=== PATIENT | female | born 1985 | race Caucasian/White ===

== ENCOUNTER 2025-07-28 15:23 | Emergency (ER) | payer OTHER, SELFPAY ==
[2025-07-28 15:29] VITALS: BP 130/84
[2025-07-28 16:28] LABS: Hematocrit 46.3 % (37.0-47.0); Hemoglobin 15.7 g/dL (12.0-16.0); Mean Corp Hgb Conc. 33.9 g/dL (33.0-37.0); Mean Corpuscular Volume 87.7 fL (81.0-99.0); Nucleated Red Blood Cells % 0 %; Platelet Count 314 10^3/uL (130-400); Red Cell Dist. Width 12.4 % (11.5-14.5)
[2025-07-28 16:38] LABS: HCG, Serum Qualitative Screen Negative
[2025-07-28 16:40] LABS: ALT (SGPT) 29 U/L (0-35); AST (SGOT) 26 U/L (14-36); Albumin 5.3 g/dl (3.5-5.0); Alkaline Phosphatase 67 U/L (38-126); Blood Urea Nitrogen 13 mg/dl (7-17); Calcium 10.0 mg/dl (8.4-10.2); Carbon Dioxide 22 mmol/L (22-30); Chloride 106 mmol/L (98-107); Glucose 87 mg/dl (70-99); Potassium 4.9 mmol/L (3.5-5.1); Sodium 136 mmol/L (135-145); Total Protein 8.5 g/dl (6.3-8.2); eGFR > 60.00
[2025-07-28 17:36] VITALS: BMI 32.6
--- NOTE | 2025-07-28 17:45 | ED.GENMED ---
History of Present Illness
General
Chief Complaint: Headache
Source: patient
Exam Limitations: none
Time Seen by Provider: 07/28/25 17:24
Nursing documentation reviewed up to this point in time: agreed with
History of Present Illness
History of Present Illness:
Patient to the emergency room with complaint of headache facial pain that radiates down her neck and across to the left side of her chest. Her symptoms started on Friday and continue to worsen. She was seen by her chiropractor today and advised
to come to the emergency department for further testing. She denies dizziness but reports feeling 'off '. She has not taking any Tylenol or Motrin for her discomfort. She has a history of migraine headaches but states this headache is different.
She reports her nausea but no vomiting. She has mild light sensitivity. Brought self to the emergency department for evaluation.
Past History
Past History
ED Past Medical History: Hypothyroidism
ED Past Surgical History: Other (THyroidectomy)
Social History
Tobacco: Former smoker (Patient stopped smoking 3 weeks ago when she became ill)
Alcohol: Occasional
Drug: None
Personal:
Living: with family
Employment: Employed
Family History
Family History: Other (Noncontributory)
Review of Systems
Review of Systems
Allergies reviewed?: Yes
All Other Systems: ROS reviewed and negative except as documented in HPI and ROS
Constitutional: Reports no symptoms
EENT: Reports other (facial pain, mild light sensitivity)
Respiratory: Reports no symptoms
Cardiac: Reports no symptoms
ABD/GI: Reports nausea
: Reports no symptoms
Musculoskeletal: Reports no symptoms
Skin: Reports no symptoms
Neurological: Reports headache
Psychiatric: Reports no symptoms
Phy Exam
General Physical Exam
General Presentation: moderate distress
General age: appears stated age
General Skin: warm and dry
General Habitus: normal
General Mental: alert
ENT Exam
ENT Exam: EOMI, TM's normal, neck supple, normocephalic and swallowing well
Eye Exam
Eye Exam: PERRL, EOMI, conjunctiva normal and globe normal
Cardiovascular Exam
Cardiovascular Exam: regular rate/rhythm
Pulmonary Exam
Pulmonary Exam: lungs clear and no respiratory distress
Neurological Exam
Neurological Exam: alert, oriented x3, CN II-XII intact, no motor deficits, no sensory deficits, speech normal and normal gait
NIH Stroke Score
Level of Consciousness: 0 - Alert
LOC questions: 0-Answers both correctly
LOC Commands: 0-Performs both correctly
Best Gaze: 0-Normal
Visual Hutton: 0=Normal, no visual loss
Facial palsy: 0=Normal, symmetrical
Motor - Right Arm: 0=No drift 10 seconds
Motor - Left Arm: 0=No drift 10 seconds
Motor - Right Le-No drift 5 seconds
Motor - Left Le-No drift 5 seconds
Limb Ataxia: 0-Absent
Sensation: 0-Normal
Best Language: 0-No aphasia
Dysarthria: 0-Normal
Extinction and Inattention: 0-No abnormality
Total Score:: 0
Isabella Coma Scale
Eye Opening: Spontaneous
Verbal Response: Oriented
Motor Response: Obeys Commands
GCS Total Score: 15
Mental
Mental Status: oriented to person, oriented to place, oriented to time and usual mental status
Cranial
Cranial Nerves: normal and no facial asymetry
EOM (CN3/4/6): intact and other (No nystagmus)
Motor
Seizure Activity: none
Gait: normal
Tremors: none
Other Movement Disorders: none
Right upper extremity: 4
Right lower extremity: 4
Left upper extremity: 4
Left lower extremity: 4
Bilateral upper extremities: 4
Bilateral lower extremities: 4
Sensory
Sensory Exam: intact
Cerebellar
Cerebellar Function: normal finger to nose, normal heel to pinon and normal Romberg test
Musculoskeletal Exam
Musculoskeletal Exam: full ROM and neuro vasc intact
Skin Exam
Skin Exam: normal color, warm/dry and no rash
Psychiatric Exam
Psychiatric Exam: normal mood/affect
Course
Orders/Labs/Results
Orders:
Orders
07/28/25 15:35
Test Result ONCE
07/28/25 15:59
CMP [Comprehensive Metabolic Panel] Urgent
Complete Blood Count/With Diff Urgent
HCG, Serum Qualitative Screen Urgent
07/28/25 17:44
0.9% Sodium Chloride 500 ml [Nss] 500 ml IV BOLUS
Dexamethasone Sod Phosphate [Decadron] 10 mg IV NOW STA
07/28/25 17:50
CT Head W/o Iv Contrast Urgent
Comment:
Reason For Exam: atypical headache
Sinuses wo Contrast CT [CT Sinuses W/o Iv Contrast] Urgent
Comment:
Reason For Exam: facial pain
07/28/25 19:14
Diphenhydramine [Benadryl] 25 mg IV NOW STA
Ketorolac [Toradol] 30 mg IV NOW STA
Prochlorperazine [Compazine] 10 mg IV NOW STA
07/28/25 19:17
Dexamethasone Pf [Decadron] 10 mg PO NOW STA
Abnormal Lab Results
07/28/25
15:59
Absolute Neuts (auto) 6.6 H 10^3/uL
(1.4-6.5)
Total Protein 8.5 H g/dl
(6.3-8.2)
Albumin 5.3 H g/dl
(3.5-5.0)
07/28/25 15:59
07/28/25 15:59
Vital Signs
Initial and Last Documented VS:
Initial Vital Signs
Temp Pulse Resp BP Pulse Ox
97.9 F 73 16 130/84 100
07/28/25 15:29 07/28/25 15:29 07/28/25 15:29 07/28/25 15:29 07/28/25 15:29
Last Documented Vital Signs
Temp Pulse Resp BP Pulse Ox
97.9 F 89 20 119/77 97
07/28/25 15:29 07/28/25 19:33 07/28/25 19:33 07/28/25 19:33 07/28/25 19:33
*Pulse Oximetry
SaO2: 100
Oxygen Mode of Delivery: Room air
Patient hypoxic: no
*Critical Care Note
Total Time (30-74mins, 75-104mins- exclusive of procedures): Not Applicable
Update Note
Update Note:
Patient to the emergency department with complaint of worsening head and facial pain. Symptoms started on Friday and continue to worsen. She has a history of migraine headaches but feels that this pain is different from her typical migraine pain.
She was seen by her chiropractor today and advised to come to the emergency department for further evaluation. On arrival to ED she is awake alert and oriented. Vital signs are stable and she remains afebrile. No skin rash. Labs reviewed no
concerning findings. She was sent for CT of head and sinuses. Sphenoid mucous cyst noted otherwise no acute findings on CT. migraine cocktail was ordered however patient wishes to be discharged home. Staff was unable to successfully start IV and
IV team was consulted however patient would like to forego any further medication and be discharged home. She agreed to Decadron oral solution which was ordered and given. She admits to not taking any medications for her pain since the start of
her symptoms on Friday. She was encouraged to use ibuprofen 600 mg every 6-8 hours, alternating with Tylenol 1 g every 6-8 hours. Neuro exam is unremarkable. No deficits noted. Will discharge home and she will follow-up with her healthcare
provider. She was given instructions on signs and symptoms to return and she is agreeable to plan
ED Attending Note
-
Portions of this chart may have been created with voice recognition software.� Occasional wrong word or��sound alike� substitutions may have occurred due to the inherent limitations of voice recognition software.
Discharge Plan
Departure
Patient Disposition: Home (Routine Discharge)
Date of Disposition: 07/28/25
Time of Disposition: 19:19
Patient with high blood pressure during this ER visit?: No
Condition: Good
Covid-19: Not Applicable
Discharge Problem:
Atypical migraine
Instructions: Headache, Adult (DC)
Prescriptions:
No Action
Vitamins Tab
1 mg PO DAILY
ibuprofen 600 MG tablet
600 mg PO Q4HPRN PRN (Reason: moderate pain/cramps) Qty: 0 0RF
Activity Restrictions/Additional Instructions:
Follow-up with your family doctor. Return to the nearest emergency department for any changes in/worsening of your symptoms, fever or chills. Take ibuprofen 600 mg every 6-8 hours. You may alternate with Tylenol 1000 mg every 6-8 hours.
Interventions
Interventions:
*Risk Screen - Suicide Last Done: 07/28/25 15:29
*General Assessment Last Done: 07/28/25 17:36
*Neglect/Abuse Screening Last Done: 07/28/25 15:29
*ED- Fall Risk Assessment Last Done: 07/28/25 17:36
*ED COVID-19 Vaccine History Last Done: 07/28/25 17:36
*ED Influenza Vaccine History Last Done: 07/28/25 17:36
*Nursing Disposition Last Done: 07/28/25 19:36
ED- Neurological Assessment Last Done: 07/28/25 17:36
Discharge Date and Time
Discharge Date/Time: 07/28/25 19:36
Print Language: HONDURAN
[2025-07-28] MEDS: DECADRON 10 MG PO (19:27)
[2025-07-28 19:33] VITALS: BP 119/77
== END 2025-07-28 19:36 | disposition home or self-care (01) ==
LOC: EMR 15:23
PROVIDERS: Emergency Medicine; EMERGENCY PHYSICIAN Emergency Medicine; FAMILY PHYSICIAN Registered Nurse
DX: G43.009 Migraine without aura, not intractable, without status migrainosus (principal); E03.9 Hypothyroidism, unspecified; Z87.891 Personal history of nicotine dependence
CPT/HCPCS: 99284; 70450; 70486; 80053; 84703; 85025